=== PATIENT | female | born 1985 | race Caucasian/White ===

== ENCOUNTER 2016-12-24 19:12 | Emergency (ER) | payer OTHER ==
[2016-12-24 19:21] VITALS: BP 108/52
--- NOTE | 2016-12-24 19:40 | ER Document Report ---
ED Medical Screen (RME) - General Stated Complaint: RIGHT LEG SWELLING Time seen by provider: 19:38 Mode of Arrival: Ambulatory Information source: Patient Notes: 30-year-old female presents to ED for swelling and and pain to the right leg for 3 days. Her primary doctor sent her to the ER to get checked for a blood clot. This patient is on control and does smoke has not been on any long trips. They she has had any recent surgeries. Consult to Dr. Dumont will order a Doppler to the right leg. I have greeted and performed a rapid initial assessment of this patient. A comprehensive ED assessment and evaluation of the patient, analysis of test results and completion of medical decision making process will be conducted by an additional ED providers. - Related Data Allergies/Adverse Reactions: No Known Allergies Allergy (Verified 04/11/13 15:26) Past Medical History - Past Medical History Cardiac Medical History: Denies: Hx Heart Attack, Hx Hypertension Pulmonary Medical History: Denies: Hx Asthma Neurological Medical History: Denies: Hx Cerebrovascular Accident, Hx Seizures GI Medical History: Denies: Hx Hepatitis, Hx Hiatal Hernia, Hx Ulcer Infectious Medical History: Denies: Hx Hepatitis Past Surgical History: Denies: Hx Hysterectomy, Hx Mastectomy, Hx Open Heart Surgery, Hx Pacemaker - Immunizations Hx Diphtheria, Pertussis, Tetanus Vaccination: Yes Physical Exam - Vital signs Vitals: Temp Pulse Resp BP Pulse Ox 97.5 F 79 18 108/52 L 99 12/24/16 19:16 12/24/16 19:16 12/24/16 19:16 12/24/16 19:16 12/24/16 19:16 Course - Vital Signs Vital signs: Temp Pulse Resp BP Pulse Ox 97.5 F 79 18 108/52 L 99 12/24/16 19:16 12/24/16 19:16 12/24/16 19:16 12/24/16 19:16 12/24/16 19:16
[2016-12-24 20:11] LABS: APPEARANCE,URINE CLEAR; BILIRUBIN,URINE NEGATIVE (NEGATIVE); GLUCOSE, URINE NEGATIVE (NEGATIVE); KETONES,URINE NEGATIVE (NEGATIVE); LEUKOCYTE ESTERASE,URINE NEGATIVE (NEGATIVE); NITRITE,URINE NEGATIVE (NEGATIVE); PROTEIN,URINE NEGATIVE (NEGATIVE); URINE SPECIFIC GRAVITY 1.001; UROBILINOGEN,URINE NEGATIVE mg/dL (<2.0)
--- NOTE | 2016-12-25 01:17 | ER Document Report ---
ED Medical Screen (RME) - General Chief Complaint: Leg Swelling Stated Complaint: RIGHT LEG SWELLING Mode of Arrival: Ambulatory Notes: Patient is a 30-year-old female presents with complaint of pain in the right thigh. Pain is been there for 3 days. Approximate 7 days ago she started taking control. She does smoke. She called her doctor who told her to come to the ER to rule out DVT. She denies any injuries or traumas. She says she did not after starting the control. Pain is worse when she extends her right knee. Pain is worse when she tries to walk. No back pain or gluteal pain. No numbness or weakness into the foot. No other complaints at this time. She's never had this problem before. TRAVEL OUTSIDE OF THE [place] IN LAST 30 DAYS: No - Related Data Allergies/Adverse Reactions: No Known Allergies Allergy (Verified 12/24/16 19:39) Past Medical History - Social History Chew tobacco use (# tins/day): No Frequency of alcohol use: None Drug Abuse: None Family history: Reviewed & Not Pertinent - Past Medical History Cardiac Medical History: Denies: Hx Heart Attack, Hx Hypertension Pulmonary Medical History: Denies: Hx Asthma Neurological Medical History: Denies: Hx Cerebrovascular Accident, Hx Seizures Renal/ Medical History: Denies: Hx Peritoneal Dialysis GI Medical History: Denies: Hx Hepatitis, Hx Hiatal Hernia, Hx Ulcer Infectious Medical History: Denies: Hx Hepatitis Past Surgical History: Denies: Hx Hysterectomy, Hx Mastectomy, Hx Open Heart Surgery, Hx Pacemaker - Immunizations Hx Diphtheria, Pertussis, Tetanus Vaccination: Yes Review of Systems - Review of Systems Notes: My Normal Review Basic REVIEW OF SYSTEMS: CONSTITUTIONAL : Denies fever, chills, or sweats. Denies recent illness. MUSCULOSKELETAL: Right thigh pain SKIN: Denies rash or skin lesions. NEUROLOGICAL: Denies weakness or paralysis or loss of use of either side. Denies sensory or motor loss.ssion. ALL OTHER SYSTEMS REVIEWED AND NEGATIVE. Physical Exam - Vital signs Vitals: Temp Pulse Resp BP Pulse Ox 97.5 F 79 18 108/52 L 99 12/24/16 19:16 12/24/16 19:16 12/24/16 19:16 12/24/16 19:16 12/24/16 19:16 - Notes Notes: General Appearance: Well nourished, alert, cooperative, no acute distress, no obvious discomfort. Well-appearing. Vitals: reviewed, See vital signs table. Eyes: PERRL, EOMI, Conjuctiva clear Back: No lumbar tenderness to palpation. No paraspinal musculature tenderness to palpation. Extremities: strength 5/5 in all extremities, good pulses in all extremities, tenderness to palpation over the right lateral quadriceps muscles. No pain to palpation of the hamstring. No pain to palpation of the gluteal region., no edema. Patient is good strength in her lower extremities. Good distal pulses in her right foot. Good distal sensation. She's able to extend her knee fully but does have some pain into the quadriceps muscle when doing so. Skin: warm, dry, appropriate color, no rash Neuro: speech clear, oriented x 3, normal affect, responds appropriately to questions. Course - Vital Signs Vital signs: Temp Pulse Resp BP Pulse Ox 97.5 F 79 18 108/52 L 99 12/24/16 19:16 12/24/16 19:16 12/24/16 19:16 12/24/16 19:16 12/24/16 19:16 - Laboratory Laboratory results interpreted by me: 12/24/16 19:50 Urine Blood SMALL H - Transfer of Care Notes: 12/25/16 01:25 Patient will be discharged home. Encourage patient to follow closely with primary care doctor for reevaluation. I did talk about the option of stopping her control now or waiting until she is moving not her placebo pills. I informed her that she may have some atypical vaginal bleeding if she does stop now. Patient still wants to stop. We will have her stop her control now and see if we do her muscle soreness as a side effect of the control. I encourage her to return to ER shows worsening pain or any further concerns. Patient agrees with plan will be discharged home. Dictation of this chart was performed using voice recognition software; therefore, there may be some unintended grammatical errors. Doctor's Discharge - Discharge Clinical Impression: Right leg pain Condition: Good Disposition: HOME, SELF-CARE Additional Instructions: PLease take Ibuprofen and use cold packs to help with your pain. Please stop taking the control. Please stop smoking. please return to the ER immediately if you have worsening pain, fever,s or feel unwell. You may have some irregular vaginal bleeding after stopping the control. Please Follow up with your doctor for reevaluation. You may need an MRI or xray if you continue to have pain in your leg 1 week after stopping the medication. Please return to the ER immediately if you have worsening pain, swelling, fevers, or feel unwell. Forms: Return to Work
--- NOTE | 2016-12-25 16:58 | XCELERA REPORT ---
[address] [address] Lower Extremity Venous Evaluation Name: JOSE MORFIN Age: 30 yrs Gender: Female : 1985 Patient Status: Preadmit Patient Location: ER Study Date: 12/24/2016 08:33 PM Procedure: Color flow and duplex imaging of the veins of the right lower extremity as well as the left Common Femoral vein. Reason For Study: swelling and pain to right leg Ordering Physician: MEILI MUNSON Performed By: Josselyn Johnson Right Sided Venous Evaluation Normal vessel filling wall to wall, compression and augmentation as well as Colour flow down to the infrageniculate veins. Left Sided Venous Evaluation The left common femoral vein is fully compressible. Spontaneous and phasic flow is present in the left common femoral vein. Critical Findings Called in to the ER. Interpretation Summary No duplex evidence of DVT or obstruction in the right lower extremity nor in the left Common Femoral vein. : EMILI MUNSON > Matheus Alanis
== END 2016-12-25 01:21 | disposition home or self-care (01) ==
LOC: EEVIPCON 19:12 → ER 19:12
DX: M79.604 Pain in right leg (principal); M79.89 Other specified soft tissue disorders; Z79.3 Long term (current) use of hormonal contraceptives
CPT/HCPCS: 81001; 81025; 93971; 99284

== ENCOUNTER 2018-02-20 16:28 | Emergency (ER) | payer OTHER ==
--- NOTE | 2018-02-20 16:46 | ER Document Report ---
ED Medical Screen (RME) - General Mode of Arrival: Ambulatory Information source: Patient TRAVEL OUTSIDE OF THE [place] IN LAST 30 DAYS: No <MIKEY BECERRA - Last Filed: 02/20/18 16:39> <SREEKANTH VILLELA - Last Filed: 02/20/18 18:54> <ALEN FREED - Last Filed: 02/20/18 21:13> - General Chief Complaint: Vag Bleeding, +preg <12wks Stated Complaint: VAGINAL BLEEDING Time Seen by Provider: 02/20/18 16:37 Notes: 32 y.o female presents to the ED with vaginal bleeding while about 8 weeks . Pt states that she the bleeding began around lunch and started out as spotting but has continued to around the amount of the same amount of blood she passes with her period. She states that she was nauseous last night but felt better after lying down, she states that she thought she had a stomach bug because her fiance was also having stomach discomfort. Pt also notes abd cramping and pain to her LT lower back. He denies having sex within the past day or two. Patient reports that she had an ultrasound at 7 weeks that showed the baby was the size it was supposed to be. (MIKEY BECERRA) - Related Data Allergies/Adverse Reactions: No Known Allergies Allergy (Verified 02/20/18 16:47) Past Medical History - General Information source: Patient - Social History Cigarette use (# per day): No Chew tobacco use (# tins/day): No Frequency of alcohol use: None Drug Abuse: None Family history: Reviewed & Not Pertinent - Past Medical History Cardiac Medical History: Denies: Hx Heart Attack, Hx Hypertension Pulmonary Medical History: Denies: Hx Asthma Neurological Medical History: Denies: Hx Cerebrovascular Accident, Hx Seizures Renal/ Medical History: Denies: Hx Peritoneal Dialysis GI Medical History: Denies: Hx Hepatitis, Hx Hiatal Hernia, Hx Ulcer Infectious Medical History: Denies: Hx Hepatitis Past Surgical History: Denies: Hx Hysterectomy, Hx Mastectomy, Hx Open Heart Surgery, Hx Pacemaker - Immunizations Hx Diphtheria, Pertussis, Tetanus Vaccination: Yes <MIKEY BECERRA - Last Filed: 02/20/18 16:39> Review of Systems - Review of Systems Constitutional: No symptoms reported EENT: No symptoms reported Cardiovascular: No symptoms reported Respiratory: No symptoms reported Gastrointestinal: See HPI, Abdominal pain - cramping, Nausea Genitourinary: No symptoms reported Female Genitourinary: See HPI, , Vaginal bleeding Musculoskeletal: See HPI, Back pain - LT lower back Skin: No symptoms reported Hematologic/Lymphatic: No symptoms reported Neurological/Psychological: No symptoms reported -: Yes All other systems reviewed and negative <MIKEY BECERRA - Last Filed: 02/20/18 16:39> Physical Exam <MIKEY BECERRA - Last Filed: 02/20/18 16:39> <SREEKANTH VILLELA - Last Filed: 02/20/18 18:54> <ALEN FREED - Last Filed: 02/20/18 21:13> - Vital signs Vitals: Temp Pulse Resp BP Pulse Ox 98.8 F 91 16 119/57 L 99 02/20/18 16:32 02/20/18 16:32 02/20/18 16:32 02/20/18 16:32 02/20/18 16:32 - Notes Notes: Physical Exam: General: Alert. Tearful and anxious. HEENT: Normocephalic. Atraumatic. PERRLA. Extraocular movements intact. Neck: Supple. Respiratory: No respiratory distress. Abdominal: No distension. Extremities: Moves all four extremities. Neurological: Normal cognition. AAOx4. Normal speech. Psychological: Tearful and anxious. Skin: Warm. Dry. Normal color. (MIKEY BECERRA) Course <MIKEY BECERRA - Last Filed: 02/20/18 16:39> - Laboratory Result Diagrams: 02/20/18 16:55 02/20/18 16:55 <SREEKANTH VILLELA - Last Filed: 02/20/18 18:54> - Laboratory Result Diagrams: 02/20/18 16:55 02/20/18 16:55 <ALEN FREED - Last Filed: 02/20/18 21:13> - Re-evaluation Re-evalutation: 02/20/18 18:54 Pelvic exam showed centimeters (approximately 2 cm. There is mild amount of blood from the cervix and posterior aspect of vault. Patient is Rh+. heart tones only 77 formal ultrasound. Patient likely having incomplete miscarriage. Advised patient she is to follow-up with her SERVICE OBSERVER CHIEF on Thursday for reevaluation or sooner in the department for any other concerns. Will provide pain and nausea medication to take home. (SREEKANTH VILLELA) - Vital Signs Vital signs: Temp Pulse Resp BP Pulse Ox 98.4 F 69 20 106/44 L 98 02/20/18 19:33 02/20/18 19:33 02/20/18 19:33 02/20/18 19:33 02/20/18 19:33 - Laboratory Laboratory results interpreted by me: 02/20/18 02/20/18 16:55 16:55 WBC 15.8 H MCV 98 H Plt Count 451 H Absolute Neutrophils 12.0 H BUN 5 L Creatinine 0.50 L Beta HCG, Quant 18355.00 H Doctor's Discharge <MIKEY BECERRA - Last Filed: 02/20/18 16:39> <SREEKANTH VILLELA - Last Filed: 02/20/18 18:54> <ALEN FREED - Last Filed: 02/20/18 21:13> - Discharge Clinical Impression: Threatened in first trimester Condition: Good Disposition: HOME, SELF-CARE Instructions: Bleeding During Early ([facility]), Threatened Miscarriage ( [facility]) Referrals: JUAN F BLOOM MD [ACTIVE STAFF] - 02/22/18 Scribe Documentation - Scribe Written by Charli:: Charli Fraser 02/20/2018 [id number] acting as scribe for :: Gerry <MIKEY BECERRA - Last Filed: 02/20/18 16:39>
[2018-02-20 17:18] LABS: ABSOLUTE BASOPHILS # (AUTO) 0.1 10^3/uL (0.0-0.2); ABSOLUTE EOSINOPHILS # (AUTO) 0.1 10^3/uL (0.0-0.6); ABSOLUTE LYMPHOCYTES (AUTO) 2.7 10^3/uL (0.5-4.7); BASOPHILS % (AUTO) 0.5 % (0-2); EOSINOPHILS % (AUTO) 0.7 % (0-6); HEMATOCRIT 42.9 % (36.0-47.0); HEMOGLOBIN 14.6 g/dL (12.0-15.5); LYMPHOCYTES % (AUTO) 16.9 % (13-45); MEAN CORPUSCULAR HEMOGLOBIN 33.4 pg (27.0-33.4); MEAN CORPUSCULAR VOLUME 98 fl (80-97); MONOCYTES % (AUTO) 6.2 % (3-13); PLATELET COUNT 451 10^3/uL (150-450); RED BLOOD COUNT 4.37 10^6/uL (3.72-5.28); RED CELL DISTRIBUTION WIDTH 13.2 % (11.5-14.0); SEGMENTED NEUTROPHILS % (AUTO) 75.7 % (42-78); TOTAL CELLS COUNTED % (AUTO) 100 %; WHITE BLOOD COUNT 15.8 10^3/uL (4.0-10.5)
[2018-02-20 17:38] LABS: ANION GAP 15 (5-19); BLOOD UREA NITROGEN 5 mg/dL (7-20); CALCIUM 9.6 mg/dL (8.4-10.2); CARBON DIOXIDE 22 mmol/L (22-30); CHLORIDE 104 mmol/L (98-107); GLUCOSE 86 mg/dL (75-110); POTASSIUM 4.1 mmol/L (3.6-5.0); SODIUM 140.9 mmol/L (137-145)
--- NOTE | 2018-02-20 17:43 | RADIOLOGY REPORT (SQ) ---
EXAM DESCRIPTION: U/S 1TRIMESTER/1GEST W/DOPPLER COMPLETED DATE/TIME: 02/20/2018 5:29 pm REASON FOR STUDY: 8 wk , vaginal bleeding COMPARISON: None. TECHNIQUE: Transabdominal static and realtime grayscale images acquired of the pelvis. Additional se lected spectral and color Doppler images recorded. All images stored on PACs. bHCG: Not applicable. LIMITATIONS: None. FINDINGS: FETUS: Living intrauterine . EGA: 9 weeks 2 days JOVANNA: 09/27/2018 FHR: 77 beats per minute. SUBCHORIONIC BLEED: No. SIZE OF BLEED: Not applicable. UTERUS: No masses. No anomalies. CERVICAL LENGTH: Not evaluated with transabdominal imaging. RIGHT ADNEXA: Normal ovary with normal vascular flow. No adnexal free fluid. No adnexal masses. LEFT ADNEXA: Normal ovary with normal vascular flow. No adnexal free fluid. No adnexal masses. FREE FLUID: None. OTHER: No other significant finding. IMPRESSION: Single live intrauterine gestation. heart rate of 77 beats per minute is consiste nt with bradycardia. No subchorionic hemorrhage appreciated. EGA 9 weeks 2 days Trimester of : First - 0 to 13 weeks. TECHNICAL DOCUMENTATION: JOB ID: [id number] [employer]- All Rights Reserved Reading location - IP/workstation name: [email or web address]
--- NOTE | 2018-02-20 18:54 | ER Document Report ---
ED GI/ - General Mode of Arrival: Ambulatory Information source: Patient TRAVEL OUTSIDE OF THE [place] IN LAST 30 DAYS: No <MIN QUIROZ - Last Filed: 02/20/18 21:01> <SREEKANTH VILLELA - Last Filed: 03/01/18 07:44> - General Chief Complaint: Vag Bleeding, +preg <12wks Stated Complaint: VAGINAL BLEEDING Time Seen by Provider: 02/20/18 16:37 Notes: Patient is a 32-year-old female who presents to the emergency department today for vaginal bleeding. Patient states on February 13 she was told she was 7 weeks at [facility] via ultrasound with a living intrauterine . Patient is A1. Patient states her last menstrual period was December 21. Patient states she has had vaginal spotting for quite some time however now she has heavy bleeding "like a period". Patient has also had diarrhea and lower abdominal cramping. Patient denies any fevers or recent sexual intercourse. (MIN QUIROZ) - Related Data Allergies/Adverse Reactions: No Known Allergies Allergy (Verified 02/20/18 16:47) Past Medical History - General Information source: Patient Last Menstrual Period: 12/21/2017 - Social History Smoking Status: Current Every Day Smoker Cigarette use (# per day): Yes Chew tobacco use (# tins/day): No Frequency of alcohol use: None Drug Abuse: None Lives with: Family Family History: Reviewed & Not Pertinent Patient has suicidal ideation: No Patient has homicidal ideation: No - Medical History Medical History: Negative Surgical Hx: Negative - Immunizations Hx Diphtheria, Pertussis, Tetanus Vaccination: Yes <MIN QUIROZ - Last Filed: 02/20/18 21:01> Review of Systems - Review of Systems Constitutional: denies: Fever EENT: No symptoms reported Cardiovascular: No symptoms reported Respiratory: No symptoms reported Gastrointestinal: See HPI, Abdominal pain, Diarrhea Genitourinary: No symptoms reported Female Genitourinary: See HPI, , Vaginal bleeding. denies: Vaginal discharge Musculoskeletal: No symptoms reported Skin: No symptoms reported Hematologic/Lymphatic: No symptoms reported Neurological/Psychological: No symptoms reported -: Yes All other systems reviewed and negative <MIN QUIROZ - Last Filed: 02/20/18 21:01> Physical Exam <MIN QUIROZ - Last Filed: 02/20/18 21:01> <SREEKANTH VILLELA - Last Filed: 03/01/18 07:44> - Vital signs Vitals: Temp Pulse Resp BP Pulse Ox 98.8 F 91 16 119/57 L 99 02/20/18 16:32 02/20/18 16:32 02/20/18 16:32 02/20/18 16:32 02/20/18 16:32 - Notes Notes: Physical Exam: General: Alert, appears well. HEENT: Normocephalic. Atraumatic. PERRL. Extraocular movements intact. Oropharynx clear. Neck: Supple. Non-tender. Respiratory: No respiratory distress. Clear and equal breath sounds bilaterally. Cardiovascular: Regular rate and rhythm. Abdominal: Normal Inspection. Non-tender. No distension. Normal Bowel Sounds. Female Genitourinary: Cervix is open 2cm. Dark red blood in the vaginal vault. Back: Non-tender. No deformity or step off. Extremities: Moves all four extremities. Upper extremities: Normal inspection. Normal ROM. Lower extremities: Normal inspection. No edema. Normal ROM. Neurological: Normal cognition. AAOx4. Normal speech. Psychological: Normal affect. Normal Mood. Skin: Warm. Dry. Normal color. (MIN QUIROZ) Course - Laboratory Result Diagrams: 02/20/18 16:55 02/20/18 16:55 <MIN QUIROZ - Last Filed: 02/20/18 21:01> - Laboratory Result Diagrams: 02/20/18 16:55 02/20/18 16:55 <SREEKANTH VILLELA - Last Filed: 03/01/18 07:44> - Re-evaluation Re-evalutation: 02/20/18 19:02 heart tones 77 ultrasound with 2 cm dilation of cervix on pelvic exam with mild amount of dark red blood in the posterior aspect of fornix with small amount of blood from cervix. Discussed case with Dr. Lang sales operations associate who agrees patient can be managed from outpatient perspective. Patient does have OB GEN and she was instructed to follow-up with her OB GEN on Thursday for reevaluation the ultrasound for viability. Patient's presentation is consistent with threatened miscarriage. Patient is Rh+ and hemoglobin is 14. Return precautions provided (SREEKANTH VILLELA) - Vital Signs Vital signs: Temp Pulse Resp BP Pulse Ox 98.4 F 69 20 106/44 L 98 04/21/18 19:33 02/20/18 19:33 02/20/18 19:33 02/20/18 19:33 02/20/18 19:33 - Laboratory Laboratory results interpreted by me: 02/20/18 02/20/18 16:55 16:55 WBC 15.8 H MCV 98 H Plt Count 451 H Absolute Neutrophils 12.0 H BUN 5 L Creatinine 0.50 L Beta HCG, Quant 64500.00 H Discharge <MIN QUIROZ - Last Filed: 02/20/18 21:01> <SREEKANTH VILLELA - Last Filed: 03/01/18 07:44> - Discharge Clinical Impression: Threatened in first trimester Condition: Good Disposition: HOME, SELF-CARE Instructions: Bleeding During Early ([facility]), Threatened Miscarriage ( [facility]) Referrals: JUAN F BLOOM MD [ACTIVE STAFF] - 02/22/18 Scribe Attestation: 03/01/18 07:44 I personally performed the services described in the documentation, reviewed and edited the documentation which was dictated to the scribe in my presence, and it accurately records my words and actions. (SREEKANTH VILLELA) Scribe Documentation - Scribe Written by Scrluis:: Charli Rosario, [id number] acting as scribe for :: Rene <MIN QUIROZ - Last Filed: 02/20/18 21:01>
[2018-02-20] MEDS ORDERED: ONDANSETRON ODT 4 MG TAB (6 TAB/ER DISP) PO PRN (19:09)
[2018-02-20] MEDS ORDERED: HYDROCODONE/ACETAMINOPHEN 5-325 MG (6 TAB/ER DISP) PO PRN (19:09)
[2018-02-20 19:34] VITALS: BP 106/44
== END 2018-02-20 19:34 | disposition home or self-care (01) ==
LOC: ER 16:28
DX: O20.0 Threatened abortion (principal); O26.891 Other specified pregnancy related conditions, first trimester; R19.7 Diarrhea, unspecified; R10.30 Lower abdominal pain, unspecified; O99.331 Smoking (tobacco) complicating pregnancy, first trimester; Z3A.09 9 weeks gestation of pregnancy
CPT/HCPCS: 36415; 76801; 80048; 84702; 85025; 86900; 86901; 93976; 99284

== ENCOUNTER → 2018-02-22 | Outpatient (CLI) | payer OTHER | LOC: OD 11:58 | PROVIDERS: ATTEND Nurse Practitioner Primary Care | DX: O20.0 Threatened abortion (principal) | CPT/HCPCS: 36415; 84702 ==

== ENCOUNTER → 2018-03-01 | Outpatient (CLI) | payer OTHER | LOC: OD 08:46 | PROVIDERS: ATTEND Nurse Practitioner Primary Care | DX: O03.9 Complete or unspecified spontaneous abortion without complication (principal) | CPT/HCPCS: 36415; 84702 ==

== ENCOUNTER → 2018-03-08 | Outpatient (CLI) | payer OTHER | LOC: OD 08:45 | PROVIDERS: ATTEND Nurse Practitioner Primary Care | DX: O03.9 Complete or unspecified spontaneous abortion without complication (principal) | CPT/HCPCS: 36415; 84702 ==

== ENCOUNTER → 2018-03-15 | Outpatient (CLI) | payer OTHER | LOC: OD 09:05 | PROVIDERS: ATTEND Nurse Practitioner Primary Care | DX: O03.9 Complete or unspecified spontaneous abortion without complication (principal) | CPT/HCPCS: 36415; 84702 ==

== ENCOUNTER → 2018-03-22 | Outpatient (CLI) | payer OTHER | LOC: OD 08:53 | PROVIDERS: ATTEND Nurse Practitioner Primary Care | DX: O03.9 Complete or unspecified spontaneous abortion without complication (principal) | CPT/HCPCS: 36415; 84702 ==